=== PATIENT | female | born 1985 | race Caucasian/White ===

== ENCOUNTER → 2017-03-23 | Outpatient (CLI) | payer SELFPAY ==
[2017-03-23 15:21] LABS: DHEA Sulfate 148.7 ug/dL (26.0-430.0); Estradiol 72.9 pg/mL
[2017-03-23 17:04] LABS: Sex Horm Bind Glob 42.5 nmol/L (18.0-166.0)
[2017-03-26 08:46] LABS: Mis test requested (Blood) Anti-Mullerian
== END | disposition home or self-care (01) ==
LOC: LABWHC1 08:27
PROVIDERS: ATTEND Obstetrics & Gynecology
DX: N91.2 Amenorrhea, unspecified (principal)
CPT/HCPCS: 36415; 80061; 82627; 82670; 82947; 83001; 83002; 83498; 83520; 83525; 84144; 84146; 84270; 84403; 84439; 84443

== ENCOUNTER → 2017-04-20 | Outpatient (CLI) | payer OTHER ==
--- NOTE | 2017-04-20 08:57 | US ---
EXAMINATION TYPE: US transvaginal DATE OF EXAM: 04/20/2017 COMPARISON: US 05/2016 CLINICAL HISTORY: N91.2 Amenorrhea. Patient states she has not had a cycle in almost 1 year TECHNIQUE: Transvaginal (TV) Date of LMP: About 1 year ago EXAM MEASUREMENTS: Uterus: 6.8 x 3.3 x 3.7 cm Endometrial Stripe: 0.7 cm Right Ovary: 3.1 x 2.2 x 2.3 cm Left Ovary: 3.2 x 2.5 x 2.5 cm 1. Uterus: Anteverted Multiple nabothian cysts visualized within the cervix 2. Endometrium: wnl 3. Right Ovary: Multiple small follicles visualized around periphery of ovary 4. Left Ovary: Multiple small follicles visualized around periphery of ovary 5. Bilateral Adnexa: wnl 6. Posterior cul-de-sac: wnl IMPRESSION: Numerous peripherally oriented bilateral small ovarian follicles (greater than 10 in the left ovary) and may relate to underlying polycystic ovarian syndrome. Correlate with serum laboratory values.
== END | disposition home or self-care (01) ==
LOC: RADUSWWP 07:07
PROVIDERS: ATTEND Obstetrics & Gynecology
DX: N91.2 Amenorrhea, unspecified (principal)
CPT/HCPCS: 76830

== ENCOUNTER → 2017-04-20 | Outpatient (CLI) | payer OTHER ==
--- NOTE | 2017-04-20 08:52 | CT ---
EXAMINATION TYPE: CT sinus wo con DATE OF EXAM: 04/20/2017 COMPARISON: NONE HISTORY: 31-year-old female chronic sinusitis CT DLP: 667.30 mGycm Automated exposure control for dose reduction was used. TECHNIQUE: Noncontrast axial views of the paranasal sinuses were obtained. Coronal reconstructions pe rformed. FINDINGS: There is trace mucosal thickening within the anterior ethmoid air cells and at the right maxillary an trum. Otherwise, the frontal, sphenoid, ethmoid, and maxillary sinuses are well-pneumatized. No air-fluid level. Reactive homer- osteogenesis is not seen. There is no destruction of the osseous rondon of the paranasal sinuses. The osteomeatal complexes are patent. The imaged brain, sella, skull base and orbits are normal in appearance. Mastoid air cells and middle ear cavities are well pneumatized. Reformatted images confirm above findings. IMPRESSION: Only trace mucosal thickening in the anterior ethmoid air cells and in the region of the right maxill quoc antrum.
== END | disposition home or self-care (01) ==
LOC: RADCTMAIN 06:51
PROVIDERS: ATTEND Otolaryngology
DX: J32.9 Chronic sinusitis, unspecified (principal)
CPT/HCPCS: 70486

== ENCOUNTER → 2018-06-04 | Outpatient (CLI) | payer OTHER ==
--- NOTE | 2018-06-04 16:18 | US ---
EXAMINATION TYPE: US thyroid st tissue head/neck DATE OF EXAM: 06/04/2018 COMPARISON: NONE CLINICAL HISTORY: R59.0 Localized enlarged lymph nodes. pt has palpable tender area at left lateral n sonia Scanned at the patient's area of concern. There is a 1.3 x 0.5 x 1.1cm lymph node. IMPRESSION: Mildly prominent lymph node at the site of clinical concern.
== END | disposition home or self-care (01) ==
LOC: RADUSWWP 15:58
PROVIDERS: ATTEND Family Medicine
DX: R59.0 Localized enlarged lymph nodes (principal)
CPT/HCPCS: 76536

== ENCOUNTER → 2020-12-03 | Outpatient (CLI) | payer BC ==
--- NOTE | 2020-12-03 15:08 | FL ---
EXAMINATION TYPE: FL hysterosalpingography DATE OF EXAM: 12/03/2020 HISTORY: Infertility. Informed consent was obtained and all the patient's questions were answered. Pulmonary film of the p leon reveals no distinct abnormality. A speculum was introduced and the external cervical os was lo calize. The external cervical os was cleansed and a Betadine solution on 3 occasions. Hysterosalpin gography catheter was introduced into the uterus and balloon insufflation device deployed. Approxima tely 10 cc of nonionic contrast was injected in a retrograde manner. The uterus has a normal size shape and appearance. No persistent uterine filling defects are seen. Both fallopian tubes fill with contrast normally. There is spill of contrast into the peritoneal cav ity bilaterally left greater than right. Fluoroscopic time 33 seconds IMPRESSION: Normal hysterosalpingogram with bilateral spill of contrast into the peritoneal cavity.
== END | disposition home or self-care (01) ==
LOC: RADUSWWP 13:28
PROVIDERS: ATTEND Obstetrics & Gynecology
DX: N97.9 Female infertility, unspecified (principal)
CPT/HCPCS: 58340; 74740; Q9966

== ENCOUNTER → 2021-07-04 | Outpatient (CLI) | payer BC ==
--- NOTE | 2021-07-05 14:39 | MM ---
Reason for exam: screening (asymptomatic). Baseline mammogram. History: Family history of breast cancer in maternal aunt. Taking hormonal contraceptives beginning at age 13. Physical Findings: Nurse did not find any significant physical abnormalities on exam. MG 3D Screening Mammo W/Cad Bilateral CC and MLO view(s) were taken. There are scattered fibroglandular densities. Benign dermal calcifications at the cleavage. Partially visualized 2-4cm prominent node right axilla. Ultrasound recommended. Otherwise, no discrete abnormality. ASSESSMENT: Incomplete: need additional imaging evaluation, BI-RAD 0 RECOMMENDATION: Ultrasound of the right breast. (upper outer quadrant and axilla) [facility] will attempt to contact patient to return for ultrasound.
== END | disposition home or self-care (01) ==
LOC: RADMAMWWP 06-29 14:34
PROVIDERS: ATTEND Obstetrics & Gynecology
DX: Z12.31 Encounter for screening mammogram for malignant neoplasm of breast (principal); Z80.3 Family history of malignant neoplasm of breast
CPT/HCPCS: 77063; 77067

== ENCOUNTER → 2021-07-18 | Outpatient (CLI) | payer BC ==
--- NOTE | 2021-07-18 07:40 | USB ---
Reason for exam: additional evaluation requested from abnormal screening. History: Family history of breast cancer in maternal aunt. Taking hormonal contraceptives beginning at age 13. Physical Findings: Breast exam preformed at baseline screening. US Breast Workup Limited RT Right limited breast ultrasound including focal area of concern, retroareolar and axilla demonstrates axillary node measuring 2.1 x 1.1cm. These results were verbally communicated with the patient and result sheet given to the patient on 07/18/21. ASSESSMENT: Probably benign, BI-RAD 3 RECOMMENDATION: Follow-up diagnostic mammogram of the right breast in 6 months.
== END | disposition home or self-care (01) ==
LOC: RADUSWWP 07:01
PROVIDERS: ATTEND Obstetrics & Gynecology
DX: R92.8 Other abnormal and inconclusive findings on diagnostic imaging of breast (principal); Z80.3 Family history of malignant neoplasm of breast

== ENCOUNTER 2023-07-25 20:52 | Emergency (ER) | payer BC ==
--- NOTE | 2023-07-25 21:40 | ED ---
General Adult HPI - General Source: patient, RN notes reviewed Mode of arrival: ambulatory Limitations: no limitations <Monet Ledesma - Last Filed: 07/25/23 21:37> - History of Present Illness -: hour(s) Location: abdomen Quality: aching Consistency: now resolved Improves with: none Worsens with: none Associated Symptoms: nausea/vomiting Treatments Prior to Arrival: none <Jcarlos Montalvo - Last Filed: 08/06/23 01:25> - General Chief complaint: Abdominal Pain Stated complaint: Abd pain Time Seen by Provider: 07/25/23 21:37 - History of Present Illness Initial comments: 37 year old female presents to the emergency department for evaluation of epigastric pain. Denies radiation. Admits to nausea without vomiting. History of gastric sleeve. (Monet Ledesma) This patient is a 37-year-old woman who presents to have evaluation of upper abdominal pain. The patient states that her symptoms started tonight a bit after she had eaten a burrito. She was having epigastric and upper abdominal pain that spread around like a band. When the symptoms worsened she came here to have evaluation. The patient states that the pain has subsequently subsided. There was some nausea when the pain was at its worst. 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 She states the stool seems to have returned to normal. (Jcarlos Montalvo) - Related Data Home Medications Medication Instructions Recorded Confirmed Glucosamine Sulfate 500 mg PO HS 05/10/16 05/10/16 Medroxyprogesterone Acetate 10 mg PO DIRECTED 05/10/16 05/10/16 [Provera] Vernon-3 Fatty Acids/Fish Oil [Fish 1 cap PO HS 05/10/16 05/10/16 Oil 1,000 mg Softgel] Pnv,Calcium 72/Iron/Folic Acid 1 tab PO HS 05/10/16 05/10/16 [ Plus Tablet] metFORMIN HCL [Glucophage] 500 mg PO HS 05/10/16 05/10/16 Allergies Allergy/AdvReac Type Severity Reaction Status Date / Time No Known Allergies Allergy Verified 07/25/23 21:30 Review of Systems ROS Other: All systems not noted in ROS Statement are negative. <Monet Ledesma - Last Filed: 07/25/23 21:37> ROS Other: All systems not noted in ROS Statement are negative. Constitutional: Denies: fever, chills Respiratory: Denies: cough, dyspnea Cardiovascular: Denies: chest pain, palpitations, edema Gastrointestinal: Reports: abdominal pain, nausea. Denies: vomiting, diarrhea, constipation, melena, hematochezia Genitourinary: Denies: dysuria, frequency, hematuria Musculoskeletal: Denies: back pain Skin: Denies: rash Neurological: Denies: headache, weakness <Jcarlos Montalvo - Last Filed: 08/06/23 01:25> ROS Statement: Those systems with pertinent positive or pertinent negative responses have been documented in the HPI. Past Medical History Additional Past Medical History / Comment(s): migraine History of Any Multi-Drug Resistant Organisms: None Reported Past Surgical History: No Surgical Hx Reported Additional Past Surgical History / Comment(s): gastric sleeve 2019 Past Psychological History: No Psychological Hx Reported Smoking Status: Never smoker Past Alcohol Use History: Occasional Past Drug Use History: None Reported <Monet Ledesma - Last Filed: 07/25/23 21:37> General Exam Limitations: no limitations <Monet Ledesma - Last Filed: 07/25/23 21:37> Limitations: no limitations General appearance: alert, in no apparent distress Head exam: Present: atraumatic, normocephalic Eye exam: Present: normal appearance. Absent: scleral icterus, conjunctival inj ection ENT exam: Present: normal oropharynx Neck exam: Present: normal inspection Respiratory exam: Present: normal lung sounds bilaterally. Absent: respiratory distress, wheezes, rales, rhonchi, stridor Cardiovascular Exam: Present: regular rate, normal rhythm, normal heart sounds. Absent: systolic murmur, diastolic murmur, rubs, gallop GI/Abdominal exam: Present: soft, tenderness. Absent: distended, guarding, rebound, rigid, mass, hernia Extremities exam: Present: normal inspection, normal capillary refill. Absent: pedal edema, calf tenderness Back exam: Present: normal inspection. Absent: CVA tenderness (R), CVA tenderness (L) Neurological exam: Present: alert Skin exam: Present: warm, dry, intact, normal color. Absent: rash <Jcarlos Montalvo - Last Filed: 08/06/23 01:25> - General Exam Comments Initial Comments: Visual Physical Exam Vital signs reviewed General: Well-appearing, nontoxic, no acute distress. Head: Normocephalic, atraumatic Eyes: PERRLA, EOMI ENT: Airway patent Chest: Nonlabored breathing Skin: No visual rash, normal skin tone Neuro: Alert and oriented 3 Musculoskeletal: No gross abnormalities (Monet Ledesma) Course Vital Signs 07/25/23 07/26/23 21:26 01:02 Temperature 98.3 F Pulse Rate 73 88 Respiratory 20 19 Rate Blood Pressure 142/91 138/90 O2 Sat by Pulse 98 100 Oximetry EKG Findings - EKG Results: EKG: interpreted by RANDI CUELLO, sinus rhythm (Rate 70 bpm), normal axis, normal QRS, normal ST/T, no acute changes <Jcarlos Montalvo - Last Filed: 08/06/23 01:25> Medical Decision Making <Monet Ledesma - Last Filed: 07/25/23 21:37> - Lab Data Result diagrams: 07/25/23 21:34 07/25/23 21:34 <Jcarlos Montalvo - Last Filed: 08/06/23 01:25> - Medical Decision Making Quick note preformed by Monet Ledesma PA-C (Monet Ledesma) The patient's symptoms have resolved. I did offer ultrasound of right upper quadrant for gallbladder. The patient states she is feeling better and would rather go home and will have continued workup as outpatient. We discussed appropriate further care and follow-up as well as return parameters. The patient had chest x-ray which interpreted as negative for acute infiltrate, pneumothorax, congestive heart failure Was pt. sent in by a medical professional or institution ([facility]AV[facility] Corado, PLASTICS SUPERVISOR, urgent care, hospital, or prison...) When possible be specific @ -[No] Did you speak to anyone other than the patient for history (EMS, parent, family, police, friend...)? What history was obtained from this source @ -[No] Did you review nursing and triage notes (agree or disagree)? Why? @ -[I reviewed and agree with nursing and triage notes] Were old charts reviewed (outside hosp., previous admission, EMS record, old EKG, old radiological studies, urgent care reports/EKG's, prison records)? Report findings @ -[No old charts were reviewed] Differential Diagnosis (chest pain, altered mental status, abdominal pain women, abdominal pain men, vaginal bleeding, weakness, fever, dyspnea, syncope, headache, dizziness, GI bleed, back pain, seizure, CVA, palpatations, mental health, musculoskeletal)? @ -[Differential Abdominal Pain Women: Appendicitis, Cholecystitis, diverticulosis, ischemic bowel, pancreatitis, hepatitis, UTI, gastroenteritis, AAA, incarcerated hernia, bowel obstruction, constipation, inflammatory bowel, hepatitis, peptic ulcer disease, splenic infarction, perforated viscus, vulvitis, ovarian torsion, PID, kidney stone, placenta abruption, this is not meant to be an all-inclusive list EKG interpreted by me (3pts min.). @ -[I interpreted as above] X-rays interpreted by me (1pt min.). @ -[I interpreted as above CT interpreted by me (1pt min.). @ -[None done] U/S interpreted by me (1pt. min.). @ -[None done] What testing was considered but not performed or refused? (CT, X-rays, U/S, labs)? Why? @ -[Ultrasound considered, see above, patient states that she does not want to wait for this and will arrange as outpatient if symptoms require What meds were considered but not given or refused? Why? @ -[None] Did you discuss the management of the patient with other professionals (professionals i.e. , PA, PLASTICS SUPERVISOR, lab, RT, psych nurse, social professionals, catalogue illustrator, teacher, juvenile justice officer, case managers)? Give summary @ -[No] Was smoking cessation discussed for >3mins.? @ -[No] Was critical care preformed (if so, how long)? @ -[No] Were there social determinants of health that impacted care today? How? (Homelessness, low income, unemployed, alcoholism, drug addiction, transportation, low edu. Level, literacy, decrease access to med. care, retirement, rehab)? @ -[No] Was there de-escalation of care discussed even if they declined (Discuss DNR or withdrawal of care, Hospice)? DNR status @ -[No] What co-morbidities impacted this encounter? (DM, HTN, Smoking, COPD, CAD, Cancer, CVA, ARF, Chemo, Hep., AIDS, mental health diagnosis, sleep apnea, morbid obesity)? @ -[None] Was patient admitted / discharged? Hospital course, mention meds given and route, prescriptions, significant lab abnormalities, going to OR and other pertinent info. @ -[See above Undiagnosed new problem with uncertain prognosis? @ -[No] Drug Therapy requiring intensive monitoring for toxicity (Heparin, Nitro, Insulin, Cardizem)? @ -[No] Were any procedures done? @ -[No] Diagnosis/symptom? @ -Acute abdominal pain Suspected biliary colic Acute, or Chronic, or Acute on Chronic? @ -[Acute Uncomplicated (without systemic symptoms) or Complicated (systemic symptoms)? @ -[Uncomplicated Side effects of treatment? @ -[No] Exacerbation, Progression, or Severe Exacerbation? @ -[No] Poses a threat to life or bodily function? How? (Chest pain, USA, IA, pneumonia, PE, COPD, DKA, ARF, appy, cholecystitis, CVA, Diverticulitis, Homicidal, Suicidal, threat to staff... and all critical care pts) @ -[No] (Jcarlos Montalvo) - Lab Data Lab Results 07/25/23 07/25/23 07/25/23 Range/Units 21:34 21:34 21:34 WBC 12.7 H (3.8-10.6) k/uL RBC 4.80 (3.80-5.40) m/uL Hgb 13.7 (11.4-16.0) gm/dL Hct 42.0 (34.0-46.0) % MCV 87.5 (80.0-100.0) fL MCH 28.7 (25.0-35.0) pg MCHC 32.7 (31.0-37.0) g/dL RDW 13.5 (11.5-15.5) % Plt Count 377 (150-450) k/uL MPV 6.6 Neutrophils % 61 % Lymphocytes % 30 % Monocytes % 6 % Eosinophils % 1 % Basophils % 1 % Neutrophils # 7.7 (1.3-7.7) k/uL Lymphocytes # 3.8 (1.0-4.8) k/uL Monocytes # 0.7 (0-1.0) k/uL Eosinophils # 0.2 (0-0.7) k/uL Basophils # 0.1 (0-0.2) k/uL PT 10.5 (10.0-12.5) sec INR 1.0 (<1.2) APTT 27.2 (22.0-30.0) sec Sodium 139 (137-145) mmol/L Potassium 4.1 (3.5-5.1) mmol/L Chloride 106 (98-107) mmol/L Carbon Dioxide 27 (22-30) mmol/L Anion Gap 6 mmol/L BUN 16 (7-17) mg/dL Creatinine 0.63 (0.52-1.04) mg/dL Est GFR (CKD-EPI)AfAm >90 (>60 ml/min/1.73 sqM) Est GFR (CKD-EPI)NonAf >90 (>60 ml/min/1.73 sqM) Glucose 119 H (74-99) mg/dL Calcium 9.4 (8.4-10.2) mg/dL Total Bilirubin 0.5 (0.2-1.3) mg/dL AST 33 (14-36) U/L ALT 33 (4-34) U/L Alkaline Phosphatase 71 (38-126) U/L Troponin I (0.000-0.034) ng/mL Total Protein 7.4 (6.3-8.2) g/dL Albumin 4.2 (3.5-5.0) g/dL Amylase 43 (30-110) U/L Lipase 203 (23-300) U/L Urine Color Urine Appearance (Clear) Urine pH (5.0-8.0) Ur Specific [place] (1.001-1.035) Urine Protein (Negative) Urine Glucose (UA) (Negative) Urine Ketones (Negative) Urine Blood (Negative) Urine Nitrite (Negative) Urine Bilirubin (Negative) Urine Urobilinogen (<2.0) mg/dL Ur Leukocyte Esterase (Negative) Urine HCG, Qual (Not Detectd) 07/25/23 07/25/23 07/25/23 Range/Units 21:34 21:34 21:34 WBC (3.8-10.6) k/uL RBC (3.80-5.40) m/uL Hgb (11.4-16.0) gm/dL Hct (34.0-46.0) % MCV (80.0-100.0) fL MCH (25.0-35.0) pg MCHC (31.0-37.0) g/dL RDW (11.5-15.5) % Plt Count (150-450) k/uL MPV Neutrophils % % Lymphocytes % % Monocytes % % Eosinophils % % Basophils % % Neutrophils # (1.3-7.7) k/uL Lymphocytes # (1.0-4.8) k/uL Monocytes # (0-1.0) k/uL Eosinophils # (0-0.7) k/uL Basophils # (0-0.2) k/uL PT (10.0-12.5) sec INR (<1.2) APTT (22.0-30.0) sec Sodium (137-145) mmol/L Potassium (3.5-5.1) mmol/L Chloride (98-107) mmol/L Carbon Dioxide (22-30) mmol/L Anion Gap mmol/L BUN (7-17) mg/dL Creatinine (0.52-1.04) mg/dL Est GFR (CKD-EPI)AfAm (>60 ml/min/1.73 sqM) Est GFR (CKD-EPI)NonAf (>60 ml/min/1.73 sqM) Glucose (74-99) mg/dL Calcium (8.4-10.2) mg/dL Total Bilirubin (0.2-1.3) mg/dL AST (14-36) U/L ALT (4-34) U/L Alkaline Phosphatase (38-126) U/L Troponin I <0.012 (0.000-0.034) ng/mL Total Protein (6.3-8.2) g/dL Albumin (3.5-5.0) g/dL Amylase (30-110) U/L Lipase (23-300) U/L Urine Color Yellow Urine Appearance Clear (Clear) Urine pH 5.5 (5.0-8.0) Ur Specific [place] 1.030 (1.001-1.035) Urine Protein Negative (Negative) Urine Glucose (UA) Negative (Negative) Urine Ketones Negative (Negative) Urine Blood Negative (Negative) Urine Nitrite Negative (Negative) Urine Bilirubin Negative (Negative) Urine Urobilinogen <2.0 (<2.0) mg/dL Ur Leukocyte Esterase Negative (Negative) Urine HCG, Qual Not Detected (Not Detectd) Disposition <Kulka,Monet - Last Filed: 07/25/23 21:37> Is patient prescribed a controlled substance at d/c from ED?: No <Jcarlos Montalvo - Last Filed: 08/06/23 01:25> Clinical Impression: Abdominal pain, Biliary colic Disposition: HOME SELF-CARE Condition: Good Instructions (If sedation given, give patient instructions): Biliary Colic (ED), Abdominal Pain (ED) Referrals: Jodie Perez MD [Primary Care Provider] - 1-2 days Mark Mendez MD [Medical Doctor] - 1-2 days
[2023-07-25 21:46] VITALS: TEMP 98.3
[2023-07-25 22:12] LABS: Basophils # (A) 0.1 k/uL (0-0.2); Basophils % (A) 1 %; Eosinophils # (A) 0.2 k/uL (0-0.7); Eosinophils % (A) 1 %; HGB 13.7 gm/dL (11.4-16.0); Lymphocytes # (A) 3.8 k/uL (1.0-4.8); Lymphocytes % (A) 30 %; MCH 28.7 pg (25.0-35.0); MCHC 32.7 g/dL (31.0-37.0); MCV 87.5 fL (80.0-100.0); Mean Platelet Volume 6.6; Monocytes # (A) 0.7 k/uL (0-1.0); Monocytes % (A) 6 %; Neutrophils # (A) 7.7 k/uL (1.3-7.7); Neutrophils % (A) 61 %; Platelet Count 377 k/uL (150-450); RDW 13.5 % (11.5-15.5); WBC 12.7 k/uL (3.8-10.6)
[2023-07-25 22:22] LABS: Partial Thromboplastin Time 27.2 sec (22.0-30.0); Prothrombin Time 10.5 sec (10.0-12.5)
[2023-07-25 22:27] LABS: ALT 33 U/L (4-34); AST 33 U/L (14-36); African American GFR (CKD) >90 (>60 ml/min/1.73 sqM); Albumin 4.2 g/dL (3.5-5.0); Alkaline Phosphatase 71 U/L (38-126); Amylase 43 U/L (30-110); Anion Gap 6 mmol/L; Blood Urea Nitrogen 16 mg/dL (7-17); Calcium 9.4 mg/dL (8.4-10.2); Carbon Dioxide 27 mmol/L (22-30); Chloride 106 mmol/L (98-107); Glucose 119 mg/dL (74-99); Lipase 203 U/L (23-300); Non-African American GFR(CKD) >90 (>60 ml/min/1.73 sqM); Potassium 4.1 mmol/L (3.5-5.1); Sodium 139 mmol/L (137-145); Total Bilirubin 0.5 mg/dL (0.2-1.3); Total Protein 7.4 g/dL (6.3-8.2)
[2023-07-25 23:25] LABS: Appearance,Urine Clear (Clear); Bilirubin,Urine Negative (Negative); Blood,Urine Negative (Negative); Color,Urine Yellow; Glucose,Urine (UA) Negative (Negative); Ketones,Urine Negative (Negative); Leukocyte Esterase,Urine Negative (Negative); Nitrite,Urine Negative (Negative); PH, Urine 5.5 (5.0-8.0); Protein,Urine Negative (Negative); Urobilinogen,Urine <2.0 mg/dL (<2.0)
--- NOTE | 2023-07-25 23:34 | XR ---
EXAM: XR Chest, 2 Views CLINICAL HISTORY: abdominal pain TECHNIQUE: Frontal and lateral views of the chest. COMPARISON: 09/15/2014. FINDINGS: Lungs: No consolidation. No atelectasis. No CHF. Pleural space: No pleural effusion. No pneumothorax. Heart: No cardiomegaly. Mediastinum: Unremarkable. Normal mediastinal contour. Bones/joints: Unremarkable. No acute fracture. IMPRESSION: No acute abnormality.
[2023-07-26 01:22] VITALS: BP 138/90; PULSE 88; RESP 19
== END 2023-07-26 01:03 | disposition home or self-care (01) ==
LOC: EC 20:52
DX: K80.50 Calculus of bile duct without cholangitis or cholecystitis without obstruction (principal)
CPT/HCPCS: 36415; 71046; 80053; 81003; 81025; 82150; 83690; 84484; 85025; 85610; 85730; 93005; 99284